=== PATIENT | male | born 1960 | race Caucasian/White ===

== ENCOUNTER 2017-12-24 15:45 | Emergency (ER) | payer BC ==
[~2017-12-24] VITALS: Ht 182.9 cm; Wt 103.4 kg
[2017-12-24] MEDS ORDERED: COZAAR50 MG (16:16)
[2017-12-24] MEDS ORDERED: NEURONTIN300 MG (16:17)
== END 2017-12-24 21:25 | disposition home or self-care (01) ==
LOC: ER 15:45
DX: E11.65 Type 2 diabetes mellitus with hyperglycemia (principal)